=== PATIENT | male | born 1985 | race Asian ===

== ENCOUNTER 2017-01-08 00:01 | Emergency (ER) | payer OTHER ==
[~2017-01-08] VITALS: Ht 165.1 cm; Wt 76.2 kg
[~2017-01-08 00:01] MED LIST: AZIT250T6 PO; BENZ100C PO; CEPH500T PO; CETI10TA16 PO; DEXT30SU PO; PROAIR HFA8.5 GM INH; [UNRECOGNIZED DRUG - CODE] OP
[2017-01-08 00:08] VITALS: BP 140/84
[2017-01-08] MEDS ORDERED: IBUP-1007 PO (00:36)
--- NOTE | 2017-01-08 00:36 | PHYS DOC ---
Past Medical History Past Medical History: Asthma Past Surgical History: No Surgical History Additional Information: nonsmoker Alcohol Use: None Drug Use: None Adult General Chief Complaint Chief Complaint: LOWER EXT PAIN HPI HPI Patient is a 31 year old male who presents with atraumatic right knee pain for 2 days. He has been ambulatory. He denies history of knee trauma. He has not taken anything for pain. His PCP is Dr. Patino. Review of Systems Review of Systems Constitutional: Denies fever or chills. [] Musculoskeletal: Denies back pain. Reports right knee pain. Integument: Denies rash or skin lesions. [] Neurologic: Denies focal weakness or sensory changes. [] Allergies Allergies Allergies Coded Allergies Type Severity Reaction Last Updated Verified Sulfa (Sulfonamide Antibiotics) Allergy Intermediate 10/19/16 Yes pantoprazole Allergy Intermediate rash 10/19/16 Yes Physical Exam Physical Exam Constitutional: Well developed, well nourished, no acute distress, non-toxic appearance. [] HENT: Normocephalic, atraumatic, oropharynx moist. [] Eyes: PERRLA, EOMI, conjunctiva normal, no discharge. [] Skin: Warm, dry, no erythema, no rash. There is no external sign of trauma. There is no erythema or warmth to suggest infection or inflammation. Extremities: Right patella tenderness, ROM intact, no edema. 2+ DP pulses bilaterally. There is no tenderness of the right hip, thigh, calf, ankle, or foot. Neurologic: Alert and oriented X 3, normal motor function, normal sensory function, no focal deficits noted. [] Psychologic: Affect normal, judgement normal, mood normal. [] Current Patient Data Vital Signs Vital Signs Date Time Temp Pulse Resp B/P Pulse Ox O2 Delivery O2 Flow Rate FiO2 01/08/17 00:08 98.1 82 16 97 Room Air 98.1 EKG EKG [] Radiology/Procedures Radiology/Procedures [] Course & Med Decision Making Course & Med Decision Making Pertinent Labs and Imaging studies reviewed. (See chart for details) The patient is provided with an Aj wrap prior to discharge. His is discharged home with prescription for ibuprofen 600mg. He is given contact information for orthopedics for follow up. Return precautions were discussed. He verbalizes understanding and agrees with plan. Luna Disclaimer Dragon Disclaimer This electronic medical record was generated, in whole or in part, using a voice recognition dictation system. Departure Departure Impression: Primary Impression: Knee pain Disposition: HOME, SELF-CARE Condition: STABLE Referrals: BRYAN PATINO MD (PCP) GEORGI LOREDO II, MD Patient Instructions: Knee Pain, [id number], Knee Wraps (Elastic Bandage) and RICE Additional Instructions: Please wear the Aj wrap to help decrease your pain. Please follow up with the orthopedic doctor listed below if your pain continues. Return to the emergency department if you have any new or concerning symptoms. Scripts Ibuprofen 600 Mg [id number] Mg PO PRN Q6HRS PRN INFLAMMATION #20 TAB Prov:ABRAM MARTINEZ 01/08/17 Problem Qualifiers Primary Impression: Knee pain Laterality: right Chronicity: acute Qualified Code: M25.561 - Pain in right knee ABRAM MARTINEZ Jan 08, 2017 00:36
== END 2017-01-08 00:42 | disposition home or self-care (01) ==
LOC: ER 00:01
DX: M25.561 Pain in right knee (principal); J45.909 Unspecified asthma, uncomplicated; Z88.2 Allergy status to sulfonamides; Z88.8 Allergy status to other drugs, medicaments and biological substances
CPT/HCPCS: 29515; 99283-25

== ENCOUNTER 2017-01-31 02:39 | Emergency (ER) | payer OTHER ==
[~2017-01-31] VITALS: Ht 167.6 cm; Wt 78.0 kg
[2017-01-31 02:39] VITALS: BP 132/78
[~2017-01-31 02:39] MED LIST changes: +IBUP-1007 PO
[2017-01-31] MEDS ORDERED: BENZONATATE 100 MG CAPSULE. PO ONE (03:45)
[2017-01-31] MEDS ORDERED: NAPROXEN 250 MG TABLET PO ONE (03:45)
[2017-01-31] MEDS ORDERED: BENZ100C PO (03:49)
--- NOTE | 2017-01-31 03:58 | ED.ADGEN ---
Past Medical History Past Medical History: No Pertinent History Past Surgical History: No Surgical History Alcohol Use: None Drug Use: None Adult General Chief Complaint Chief Complaint: SORE THROAT HPI HPI Patient is a 31 year old man, with no significant past no history, who presents to the emergency department with complaint of nasal congestion, rhinorrhea, sore throat that began 2 days ago. Patient states that he took ibuprofen at home yesterday with some improvement. Denies any fevers or chills, any headache , any difficulty swallowing or breathing, although he states he has had pain with swallowing. Last took a dose of medication more than 12 hours prior to arrival in the ED. He is afebrile upon arrival. Denies any sick contacts or exposures, states that he has a mild cough productive of white sputum over the past several days as well. No chest pain, no shortness of breath, no weakness numbness or tingling, no headache, no ear pain. No recent travel or surgery, history of DVT or PE, no swelling of the extremities. No rashes. Review of Systems Review of Systems Constitutional: Denies fever or chills. [] Eyes: Denies change in visual acuity. [] HENT: Nasal congestion and sore throat over the past several days. Respiratory: No shortness of breath, complaining of cough white sputum over the past several days. Cardiovascular: Denies chest pain or edema. [] GI: Denies abdominal pain, nausea, vomiting, bloody stools or diarrhea. [] : Denies dysuria. [] Musculoskeletal: Denies back pain or joint pain. [] Integument: Denies rash. [] Neurologic: Denies headache, focal weakness or sensory changes. [] Endocrine: Denies polyuria or polydipsia. [] Lymphatic: Denies swollen glands. [] Psychiatric: Denies depression or anxiety. [] Current Medications Current Medications Current Medications Medications (Trade) Dose Ordered Sig/Robert Start Time Stop Time Status Last Admin Dose Admin Benzonatate (Tessalon Perle) 100 mg 1X ONCE 01/31/17 03:45 01/31/17 03:46 DC 01/31/17 03:43 100 MG Naproxen (Naprosyn) 250 mg 1X ONCE 01/31/17 03:45 01/31/17 03:46 DC 01/31/17 03:44 250 MG Allergies Allergies Allergies Coded Allergies Type Severity Reaction Last Updated Verified Sulfa (Sulfonamide Antibiotics) Allergy Intermediate 10/19/16 Yes pantoprazole Allergy Intermediate rash 10/19/16 Yes Physical Exam Physical Exam Constitutional: Well developed, well nourished, no acute distress, non-toxic appearance. [] HENT: Normocephalic, atraumatic, bilateral external ears normal, oropharynx moist, oropharynx is mildly injected, no exudates appreciated, no tonsillar swelling, no mucosal involvement, no lesions identified. Eyes: PERRLA, EOMI, conjunctiva normal, no discharge. [] Neck: Normal range of motion, no tenderness, supple, no stridor. [] Cardiovascular:Heart rate regular rhythm, no murmur, S1, S2, no rubs or gallops. [] Lungs & Thorax: Bilateral breath sounds clear to auscultation , no wheezing, rhonchi, rales. No chest tenderness or crepitus. [] Abdomen: Bowel sounds normal, soft, no tenderness, no masses, no pulsatile masses. [] Skin: Warm, dry, no erythema, no rash. [] Back: No tenderness, no CVA tenderness. [] Extremities: No tenderness, no cyanosis, no clubbing, ROM intact, no edema. [] Neurologic: Alert and oriented X 3, normal motor function, normal sensory function, no focal deficits noted. [] Psychologic: Affect normal, judgement normal, mood normal. [] Current Patient Data Vital Signs Vital Signs Date Time Temp Pulse Resp B/P Pulse Ox O2 Delivery O2 Flow Rate FiO2 01/31/17 02:39 98.2 83 18 97 Room Air 98.2 EKG EKG Not indicated. [] Radiology/Procedures Radiology/Procedures Not indicated. [] Course & Med Decision Making Course & Med Decision Making Pertinent Labs and Imaging studies reviewed. (See chart for details) Patient examination does not reveal any evidence of lower airspace disease involvement, or any swelling or airway throat compromise. Patient denies any pain with swallowing, did tolerate naproxen and Tessalon Perle in the ED without issue along with by mouth fluids. No dictation for imaging or additional evaluation, strep swab was negative. I did discuss supportive measures for a viral upper respiratory infection with patient, she voiced understanding and agreement. Discharged home with prescription for Tessalon Perles, medications, precautions, and instructions as stated. Dragon Disclaimer Dragon Disclaimer This electronic medical record was generated, in whole or in part, using a voice recognition dictation system. Departure Impression: Primary Impression: Sore throat (viral) Additional Impression: Cough Disposition: HOME, SELF-CARE Condition: IMPROVED Scripts Benzonatate (Tessalon Perle)100 Mg [id number] Mg PO TID PRN COUGH #12 CAP Prov:ABRAM MCARTHUR DO 01/31/17 Problem Qualifiers ABRAM MCARTHUR DO Jan 31, 2017 03:58
[2017-01-31 08:25] LABS: NEGATIVE OBC STREP NEG; POSITIVE OBC STREP POS
== END 2017-01-31 03:58 | disposition home or self-care (01) ==
LOC: ER 02:39
DX: J02.8 Acute pharyngitis due to other specified organisms (principal); Z88.2 Allergy status to sulfonamides; Z88.8 Allergy status to other drugs, medicaments and biological substances
CPT/HCPCS: 87070; 87880; 99283

== ENCOUNTER 2017-03-07 02:04 | Emergency (ER) | payer OTHER ==
[~2017-03-07] VITALS: Ht 167.6 cm; Wt 78.0 kg
[2017-03-07 02:27] VITALS: BP 142/84
--- NOTE | 2017-03-07 02:30 | PHYS DOC ---
Past Medical History Past Medical History: No Pertinent History Past Surgical History: No Surgical History Alcohol Use: None Drug Use: None Adult General Chief Complaint Chief Complaint: Congestion HPI HPI Patient is a 32 year old male that has been having sinus congestion and clogged nose for the past one week. No fevers or difficulty breathing cough nausea vomiting or other systemic symptoms. Review of Systems Review of Systems Constitutional: Denies fever or chills [] HENT: + nasal congestion. No sore throat [] Respiratory: Denies cough or shortness of breath [] Cardiovascular: No additional information not addressed in HPI [] GI: Denies abdominal pain, nausea, vomiting, bloody stools or diarrhea [] Allergies Allergies Allergies Coded Allergies Type Severity Reaction Last Updated Verified Sulfa (Sulfonamide Antibiotics) Allergy Intermediate 10/19/16 Yes pantoprazole Allergy Intermediate rash 10/19/16 Yes Physical Exam Physical Exam Constitutional: Well developed, well nourished, no acute distress, non-toxic appearance. [] HENT: Normocephalic, atraumatic, bilateral external ears normal, oropharynx moist, no oral exudates. Bilateral nasal turbinates boggy with rhinorrhea noted. No pain to palpation of his sinuses. Eyes: PERRLA, EOMI, conjunctiva normal, no discharge. [] Cardiovascular:Heart rate regular rhythm, no murmur [] Lungs & Thorax: Bilateral breath sounds clear to auscultation [] Current Patient Data Vital Signs Vital Signs Date Time Temp Pulse Resp B/P Pulse Ox O2 Delivery O2 Flow Rate FiO2 03/07/17 02:27 97.7 83 18 98 Room Air 97.7 EKG EKG [] Radiology/Procedures Radiology/Procedures [] Course & Med Decision Making Course & Med Decision Making Patient with sinusitis likely related to allergy so he'll be treated supportively as an outpatient with Nasonex Afrin Benadryl and ibuprofen. Patient will follow with PCP if not improving. Dragon Disclaimer Dragon Disclaimer This electronic medical record was generated, in whole or in part, using a voice recognition dictation system. Departure Departure Impression: Primary Impression: Nasal congestion Disposition: 01 HOME, SELF-CARE Condition: GOOD Referrals: BRYAN PATINO MD (PCP) Patient Instructions: Sinusitis Additional Instructions: ALL OF THESE MEDICATIONS ARE OVER THE COUNTER. TAKE NASONEX AND AFRIN NASAL SPRAYS. TAKE 25MG OF BENADRYL EVERY 6 HOURS AND 400MG OF IBUPROFEN EVERY 6 HOURS FOR THE NEXT WEEK. THANK YOU! DEDE YANG DO March 07, 2017 02:30
== END 2017-03-07 02:41 | disposition home or self-care (01) ==
LOC: ER 02:04
DX: R09.81 Nasal congestion (principal); Z88.2 Allergy status to sulfonamides; Z88.8 Allergy status to other drugs, medicaments and biological substances
CPT/HCPCS: 99281

== ENCOUNTER 2017-03-12 23:40 | Emergency (ER) | payer OTHER ==
[2017-03-12 23:52] VITALS: BP 141/93
--- NOTE | 2017-03-13 00:42 | PHYS DOC ---
Past Medical History Past Medical History: Asthma Past Surgical History: No Surgical History Alcohol Use: None Drug Use: None Adult General Chief Complaint Chief Complaint: Congestion HPI HPI Patient is a 32 year old male presents emergency department stating that he was seen here 3 days ago and was provided with nasal spray. Patient presents back today stating that he has had itchy watery eyes with sneezing. He denies any fever, chills or any nausea vomiting he denies any cough or congestion. Review of Systems Review of Systems Constitutional: Denies fever or chills [] Eyes: Denies change in visual acuity, redness, or eye pain [] HENT: Denies nasal congestion or sore throat [] Respiratory: Denies cough or shortness of breath [] Cardiovascular: No additional information not addressed in HPI [] GI: Denies abdominal pain, nausea, vomiting, bloody stools or diarrhea [] : Denies dysuria or hematuria [] Musculoskeletal: Denies back pain or joint pain [] Integument: Denies rash or skin lesions [] Neurologic: Denies headache, focal weakness or sensory changes [] Endocrine: Denies polyuria or polydipsia [] Allergies Allergies Allergies Coded Allergies Type Severity Reaction Last Updated Verified Sulfa (Sulfonamide Antibiotics) Allergy Intermediate 10/19/16 Yes pantoprazole Allergy Intermediate rash 10/19/16 Yes Physical Exam Physical Exam Constitutional: Well developed, well nourished, no acute distress, non-toxic appearance. [] HENT: Normocephalic, atraumatic, bilateral external ears normal, oropharynx moist, no oral exudates, nose normal. Bilateral tympanic membranes appear to be normal. Throat with no erythematous no drainage and no discharge noted. Eyes: PERRLA, EOMI, conjunctiva appears to be red with no discharge noted Neck: Normal range of motion, no tenderness, supple, no stridor. [] Cardiovascular:Heart rate regular rhythm, no murmur [] Lungs & Thorax: Bilateral breath sounds clear to auscultation [] Skin: Warm, dry, no erythema, no rash. [] Back: No tenderness Extremities: No tenderness, no cyanosis, no clubbing, ROM intact, no edema. [] Neurologic: Alert and oriented X 3, normal motor function, normal sensory function, no focal deficits noted. [] Psychologic: Affect normal, judgement normal, mood normal. [] Current Patient Data Vital Signs Vital Signs Date Time Temp Pulse Resp B/P (MAP) Pulse Ox O2 Delivery O2 Flow Rate FiO2 03/12/17 23:52 98.0 85 20 97 Room Air 98.0 EKG EKG [] Radiology/Procedures Radiology/Procedures [] Course & Med Decision Making Course & Med Decision Making Pertinent Labs and Imaging studies reviewed. (See chart for details) Patient will be provided with information in allergies. Recommended Zyrtec and Visine allergy drops [id number]. Recommended patient to continue with the nasal sprays in which patient was prescribed 3 days ago. Patient will be discharged home in stable condition with recommendations to follow-up with her primary care physician in the next 3-5 days. Patient will also be provided with signs and symptoms to return back to emergency department. [] Dragon Disclaimer Dragon Disclaimer This electronic medical record was generated, in whole or in part, using a voice recognition dictation system. Departure Departure Impression: Primary Impression: Environmental allergies Disposition: HOME, SELF-CARE Condition: STABLE Referrals: BRYAN PATINO MD (PCP) Patient Instructions: Allergic Rhinitis Additional Instructions: Activity as tolerated. Medications as prescribed such as Zyrtec, and Visine eyedrops for allergy relief. Continue with the nasal sprays in which you were provided 3 days ago. Nasonex is nasal spray in which you were recommended to use. Return back to emergency department sent signs and symptoms of become worse. Follow-up with her primary care physician in the next 3-5 days. MATTY HILL APRN March 13, 2017 00:42
== END 2017-03-13 00:50 | disposition home or self-care (01) ==
LOC: ER 03-13 00:14
DX: T78.49XA Other allergy, initial encounter (principal); J45.909 Unspecified asthma, uncomplicated; Z88.2 Allergy status to sulfonamides; Z88.8 Allergy status to other drugs, medicaments and biological substances; X58.XXXA Exposure to other specified factors, initial encounter
CPT/HCPCS: 99281

== ENCOUNTER 2017-03-24 02:04 | Emergency (ER) | payer OTHER ==
[~2017-03-24] VITALS: Ht 167.6 cm; Wt 78.0 kg
[2017-03-24 02:10] VITALS: BP 157/96
[2017-03-24] MEDS ORDERED: PROAIR HFA8.5 GM INH (02:26)
[2017-03-24] MEDS ORDERED: FLUT9.9S NS (02:26)
--- NOTE | 2017-03-24 02:26 | PHYS DOC ---
Past Medical History Past Medical History: Asthma Past Surgical History: No Surgical History Alcohol Use: None Drug Use: None Adult General Chief Complaint Chief Complaint: Congestion HPI HPI Patient is a 32 year old male who presents with complaint of nasal congestion and cough. Patient states his symptoms have been worsening over the past 2 days. Patient has history of seasonal allergies and asthma. Patient states that he has been taking an allergy pill at home with no relief in symptoms. Patient states that his symptoms seem to worsen at nighttime. Patient denies any associated fever or shortness of breath with symptoms. Review of Systems Review of Systems Constitutional: Denies fever or chills [] Eyes: Denies change in visual acuity, redness, or eye pain [] HENT: Nasal congestion, denies sore throat [] Respiratory: Cough, denies shortness of breath [] Cardiovascular: Denies chest pain or edema [] GI: Denies abdominal pain, nausea, vomiting, bloody stools or diarrhea [] : Denies dysuria or hematuria [] Musculoskeletal: Denies back pain or joint pain [] Integument: Denies rash or skin lesions [] Neurologic: Denies headache, focal weakness or sensory changes [] Current Medications Current Medications Current Medications Medications (Trade) Dose Ordered Sig/Robert Start Time Stop Time Status Last Admin Dose Admin Dexamethasone Sodium Phosphate (Decadron) 12 mg 1X ONCE 03/24/17 02:30 03/24/17 02:31 DC 03/24/17 02:41 12 MG Oxymetazoline HCl (Afrin) 2 spray 1X ONCE 03/24/17 02:30 03/24/17 02:31 DC 03/24/17 02:41 2 SPRAY Allergies Allergies Allergies Coded Allergies Type Severity Reaction Last Updated Verified Sulfa (Sulfonamide Antibiotics) Allergy Intermediate 10/19/16 Yes pantoprazole Allergy Intermediate rash 10/19/16 Yes Physical Exam Physical Exam Constitutional: Alert, afebrile, no acute distress. [] HENT: Normocephalic, atraumatic, bilateral external ears normal, oropharynx moist, no oral exudates, boggy nasal mucosa bilaterally, clear rhinorrhea bilaterally Neck: Normal range of motion, no tenderness, supple, no stridor. [] Cardiovascular:Heart rate regular rhythm, no murmur [] Lungs & Thorax: None restricted air movement bilaterally, faint occasional expiratory wheezes in the right upper lobe, no rales [] Abdomen: Bowel sounds normal, soft, no tenderness, no masses, no pulsatile masses. [] Skin: Warm, dry, no erythema, no rash. [] Back: No tenderness, no CVA tenderness. [] Extremities: No tenderness, no cyanosis, no clubbing, ROM intact, no edema. [] Neurologic: Alert and oriented X 3, normal motor function, normal sensory function, no focal deficits noted. [] Current Patient Data Vital Signs Vital Signs Date Time Temp Pulse Resp B/P (MAP) Pulse Ox O2 Delivery O2 Flow Rate FiO2 03/24/17 02:10 97.7 73 18 97 Room Air 97.7 EKG EKG Not performed [] Radiology/Procedures Radiology/Procedures Not performed [] Course & Med Decision Making Course & Med Decision Making Pertinent Labs and Imaging studies reviewed. (See chart for details) Patient's symptoms appear consistent with mild to moderate exacerbation of seasonal allergies. Patient was treated with IM Decadron and Afrin nasal spray to improve air movement through nasal passages. Patient was prescribed Flonase for continued treatment of allergic rhinitis. Patient provided with prescription for albuterol inhaler to use as needed for wheezing and advised to continue on allergy medication. Recommended follow-up in 5 days a primary doctor if symptoms are not improving and return to emergency department for any worsening symptoms. Patient voiced understanding and in agreement with treatment plan. Dragon Disclaimer Dragon Disclaimer This electronic medical record was generated, in whole or in part, using a voice recognition dictation system. Departure Departure Impression: Primary Impression: Allergic rhinitis Additional Impression: Asthma Disposition: 01 HOME, SELF-CARE Condition: IMPROVED Referrals: BRYAN PATINO MD (PCP) Patient Instructions: Allergic Rhinitis, Asthma, Adult Additional Instructions: Follow-up with primary doctor in the next 5 days if symptoms are not improving. Return to emergency department for any worsening symptoms. Scripts Albuterol Sulfate (PROAIR HFA INHALER) 8.5 Gm Hfa.aer.ad 2 PUFF INH Q6HRS Y for SHORTNESS OF BREATH, #1 INHALER 0 Refills Prov: SHARMAINE MANCILLA MD 03/24/17 Fluticasone Propionate (Flonase Allergy Relief) 9.9 Ml [place].susp 2 SPRAYS NS DAILY, #1 BOTTLE Prov: SHARMAINE MANCILLA MD 03/24/17 Problem Qualifiers Primary Impression: Allergic rhinitis Allergic rhinitis trigger: unspecified Allergic rhinitis seasonality: seasonal Qualified Codes: J30.2 - Other seasonal allergic rhinitis Additional Impression: Asthma Asthma severity: mild intermittent Asthma complication type: uncomplicated Qualified Codes: J45.20 - Mild intermittent asthma, uncomplicated SHARMAINE MANCILLA MD March 24, 2017 02:26
[2017-03-24] MEDS ORDERED: OXYMETAZOLINE 0.05% NASAL SPRAY 30ML BOTTLE. NS ONE (02:30)
[2017-03-24] MEDS ORDERED: DEXAMETHASONE SOD PHOS 20 MG/5 ML VIAL. IM ONE (02:30)
== END 2017-03-24 02:47 | disposition home or self-care (01) ==
LOC: ER 02:04
DX: J30.2 Other seasonal allergic rhinitis (principal); J45.20 Mild intermittent asthma, uncomplicated; Z88.2 Allergy status to sulfonamides; Z88.8 Allergy status to other drugs, medicaments and biological substances
CPT/HCPCS: 96372; 99283; J1100

== ENCOUNTER 2018-03-14 22:47 | Emergency (ER) | payer OTHER | END 2018-03-14 23:55 | disposition home or self-care (01) | LOC: ER 23:55 | DX: J30.2 Other seasonal allergic rhinitis (principal); J45.909 Unspecified asthma, uncomplicated; Z88.2 Allergy status to sulfonamides; Z88.8 Allergy status to other drugs, medicaments and biological substances | CPT/HCPCS: 99283 ==

== ENCOUNTER 2018-03-26 09:27 | Emergency (ER) | payer OTHER ==
[2018-03-26] MEDS: predniSONE 10 MG TABLET PO (10:11)
[2018-03-26] MEDS: IPRATRPIUM/ALBUTEROL 0.5/2.5MG 3 ML NEBU. NEB (10:29)
== END 2018-03-26 11:07 | disposition home or self-care (01) ==
LOC: ER 09:27
DX: J45.901 Unspecified asthma with (acute) exacerbation (principal); Z88.2 Allergy status to sulfonamides; Z88.8 Allergy status to other drugs, medicaments and biological substances
CPT/HCPCS: 94640; 99283; J7512; J7620

== ENCOUNTER 2018-05-27 10:21 | Emergency (ER) | payer OTHER ==
[2018-05-27] MEDS: IBUPROFEN 800 MG TABLET. PO (11:00)
== END 2018-05-27 11:43 | disposition home or self-care (01) ==
LOC: ER 11:43
DX: S29.9XXA Unspecified injury of thorax, initial encounter (principal); J45.909 Unspecified asthma, uncomplicated; Z88.2 Allergy status to sulfonamides; Z88.8 Allergy status to other drugs, medicaments and biological substances; W22.8XXA Striking against or struck by other objects, initial encounter; Y93.89 Activity, other specified; Y99.8 Other external cause status; Y92.89 Other specified places as the place of occurrence of the external cause
CPT/HCPCS: 71101; 99284

== ENCOUNTER 2019-03-27 16:38 | Emergency (ER) | payer OTHER ==
[~2019-03-27] VITALS: Ht 167.6 cm; Wt 78.0 kg
[~2019-03-27 16:38] MED LIST changes: +ALBU2.5V8 INH; +CETI10TA22 PO; +FLUT9.9S NS; +IBUP-1060 PO; +METH4TAB2 PO; +PRED20TA PO; -PROAIR HFA8.5 GM INH; +VENTOLIN HFA18 GM INH
[2019-03-27 16:54] VITALS: BP 151/83
--- NOTE | 2019-03-27 17:29 | RAD ---
Two-view chest dated 03/27/2019. Comparison made to 05/27/2018. CLINICAL INDICATION: Cough. FINDINGS: PA and lateral views obtained. Heart and mediastinal contours are stable. Lungs are clear without focal consolidation. Vascular interstitium within normal limits. No pleural effusion or pneumothorax. IMPRESSION: No acute radiographic abnormality. Electronically signed by: Santos Bush MD (03/27/2019 5:27 PM) [facility]
--- NOTE | 2019-03-27 17:43 | PHYS DOC ---
Past Medical History Past Medical History: No Pertinent History, Asthma Past Surgical History: No Surgical History Alcohol Use: None Drug Use: None Adult General Chief Complaint Chief Complaint: COUGH HPI HPI Patient is a 34 year old male with history of asthma who presents today complaining of a productive cough for 2 months. Patient is also complaining of nasal congestion. Patient states his symptoms are worse when he is at work, he works in a freezer. Denies any fever. Review of Systems Review of Systems Constitutional: Denies fever or chills [] Eyes: Denies change in visual acuity, redness, or eye pain [] HENT: Reports nasal congestion, denies sore throat [] Respiratory: Reports cough, denies shortness of breath [] Cardiovascular: No additional information not addressed in HPI [] GI: Denies abdominal pain, nausea, vomiting, bloody stools or diarrhea [] : Denies dysuria or hematuria [] Musculoskeletal: Denies back pain or joint pain [] Integument: Denies rash or skin lesions [] Neurologic: Denies headache, focal weakness or sensory changes [] All other systems were reviewed and found to be within normal limits, except as documented in this note. Current Medications Current Medications Current Medications Medications (Trade) Dose Ordered Sig/Robert Start Time Stop Time Status Last Admin Dose Admin Albuterol/ Ipratropium (Duoneb) 3 ml 1X ONCE 03/27/19 17:45 03/27/19 17:46 DC 03/27/19 17:42 3 ML Benzonatate (Tessalon Perle) 100 mg 1X ONCE 03/27/19 17:45 03/27/19 17:46 DC 03/27/19 17:26 100 MG Prednisone (Prednisone) 50 mg 1X ONCE 03/27/19 17:45 03/27/19 17:46 DC 03/27/19 17:26 50 MG Allergies Allergies Allergies Coded Allergies Type Severity Reaction Last Updated Verified Sulfa (Sulfonamide Antibiotics) Allergy Intermediate 10/19/16 Yes pantoprazole Allergy Intermediate rash 10/19/16 Yes Physical Exam Physical Exam Constitutional: Well developed, well nourished, no acute distress, non-toxic appearance. [] HENT: Normocephalic, atraumatic, bilateral external ears normal, oropharynx moist, no oral exudates, nose normal. [] Eyes: PERRLA, EOMI, conjunctiva normal, no discharge. [] Neck: Normal range of motion, no tenderness, supple, no stridor. [] Cardiovascular:Heart rate regular rhythm, no murmur [] Lungs & Thorax: Bilateral breath sounds clear to auscultation [] Abdomen: Bowel sounds normal, soft, no tenderness, no masses, no pulsatile masses. [] Skin: Warm, dry, no erythema, no rash. [] Back: No tenderness, no CVA tenderness. [] Extremities: No tenderness, no cyanosis, no clubbing, ROM intact, no edema. [] Neurologic: Alert and oriented X 3, normal motor function, normal sensory function, no focal deficits noted. [] Psychologic: Affect normal, judgement normal, mood normal. [] Current Patient Data Vital Signs Vital Signs Date Time Temp Pulse Resp B/P (MAP) Pulse Ox O2 Delivery O2 Flow Rate FiO2 03/27/19 17:44 100 Room Air 03/27/19 16:54 97.6 96 18 151/83 (105) 97.6 EKG EKG [] Radiology/Procedures Radiology/Procedures []PROCEDURE: CHEST PA & LATERAL Two-view chest dated 03/27/2019. Comparison made to 05/27/2018. CLINICAL INDICATION: Cough. FINDINGS: PA and lateral views obtained. Heart and mediastinal contours are stable. Lungs are clear without focal consolidation. Vascular interstitium within normal limits. No pleural effusion or pneumothorax. IMPRESSION: No acute radiographic abnormality. Electronically signed by: Santos Bush MD (03/27/2019 5:27 PM) [facility] DICTATED and SIGNED BY: SANTOS BUSH MD DATE: 03/27/19 1722 Course & Med Decision Making Course & Med Decision Making Pertinent Labs and Imaging studies reviewed. (See chart for details) This is a 34-year-old male patient presenting to the ED today complaining of a productive cough for 2 months. 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 Chest x-ray interpreted by radiologist as negative for any acute findings. O2 sats 96% on room air. Patient was given a DuoNeb treatment. Given prednisone and Tessalon Perles.Patient was discharged with albuterol inhaler, Prednisone, Tessalon Perles. Follow-up with PCP in 1-2 weeks. Dragon Disclaimer Dragon Disclaimer This electronic medical record was generated, in whole or in part, using a voice recognition dictation system. Departure Departure Impression: Primary Impression: Asthma exacerbation Additional Impression: URI (upper respiratory infection) Disposition: 01 HOME, SELF-CARE Condition: STABLE Referrals: BRYAN PATINO MD (PCP) follow up in 1 week Patient Instructions: Asthma, Adult, Upper Respiratory Infection, Adult, [id number] Additional Instructions: You were evaluated in the emergency with symptoms consistent of upper respiratory infection and asthma. We'll put to medications, take them as prescribed. Follow-up with your doctor in 1-2 weeks. Scripts Benzonatate (TESSALON PERLE) 100 Mg Capsule 1 CAP PO TID, #30 CAP Prov: ANDREWS MCLEOD APRN 03/27/19 Prednisone (PREDNISONE) 50 Mg Tablet 1 TAB PO DAILY, #5 TAB Prov: ANDREWS MCLEOD APRN 03/27/19 Albuterol Sulfate (Proair Hfa) 8.5 Gm Hfa.aer.ad 1 PUFF INH PRN Q6HRS PRN for SHORTNESS OF BREATH, #1 INHALER Prov: ANDREWS MCLEOD APRN 03/27/19 Problem Qualifiers Primary Impression: Asthma exacerbation Asthma severity: mild Asthma persistence: intermittent Qualified Codes: J45.21 - Mild intermittent asthma with (acute) exacerbation Additional Impression: URI (upper respiratory infection) URI type: unspecified URI Qualified Codes: J06.9 - Acute upper respiratory infection, unspecified ANDREWS MCLEOD APRN March 27, 2019 17:43
[2019-03-27] MEDS ORDERED: IPRATRPIUM/ALBUTEROL 0.5/2.5MG 3 ML NEBU. NEB ONE (17:45)
[2019-03-27] MEDS ORDERED: BENZONATATE 100 MG CAPSULE. PO ONE (17:45)
[2019-03-27] MEDS ORDERED: predniSONE 10 MG TABLET PO ONE (17:45)
[2019-03-27] MEDS ORDERED: ALBU2.5V8 INH (18:05)
[2019-03-27] MEDS ORDERED: BENZ100C PO (18:05)
[2019-03-27] MEDS ORDERED: PRED50TA PO (18:05)
== END 2019-03-27 18:32 | disposition home or self-care (01) ==
LOC: ER 16:38
DX: J45.21 Mild intermittent asthma with (acute) exacerbation (principal); J06.9 Acute upper respiratory infection, unspecified; Z88.2 Allergy status to sulfonamides; Z88.8 Allergy status to other drugs, medicaments and biological substances
CPT/HCPCS: 71046; 94640; 99284; J7512; J7620

== ENCOUNTER 2019-08-14 09:13 | Emergency (ER) | payer OTHER ==
[~2019-08-14] VITALS: Ht 167.6 cm; Wt 78.0 kg
[~2019-08-14 09:13] MED LIST changes: +PRED50TA PO
[2019-08-14 09:15] VITALS: BP 148/92
--- NOTE | 2019-08-14 09:38 | PHYS DOC ---
Past Medical History Past Medical History: No Pertinent History, Asthma Past Surgical History: No Surgical History Alcohol Use: None Drug Use: None Adult General Chief Complaint Chief Complaint: SORE THROAT HPI HPI Patient is a 34 year old male that presents to the emergency department for sore throat, cough, and runny noses been ongoing since last night. The patient rates his pain as 8 out of 10 in severity states he is not taking medicine for this condition at home. No other complaints Review of Systems Review of Systems Constitutional: Denies fever or chills [] Eyes: Denies change in visual acuity, redness, or eye pain [] HENT: Report nasal congestion and sore throat [] Respiratory: Reports cough Cardiovascular: No additional information not addressed in HPI [] GI: Denies abdominal pain, nausea, vomiting, bloody stools or diarrhea [] : Denies dysuria or hematuria [] Musculoskeletal: Denies back pain or joint pain [] Integument: Denies rash or skin lesions [] Neurologic: Denies headache, focal weakness or sensory changes [] Endocrine: Denies polyuria or polydipsia [] Complete systems were reviewed and found to be within normal limits, except as documented in this note. Allergies Allergies Allergies Coded Allergies Type Severity Reaction Last Updated Verified Sulfa (Sulfonamide Antibiotics) Allergy Intermediate 10/19/16 Yes pantoprazole Allergy Intermediate rash 10/19/16 Yes Physical Exam Physical Exam Constitutional: Well developed, well nourished, no acute distress, non-toxic appearance. [] HENT: Normocephalic, atraumatic, bilateral external ears normal, tonsils are 2+/4, oropharynx moist, no oral exudates, turbinates inflamed Eyes: PERRLA, EOMI, conjunctiva normal, no discharge. [] Neck: Normal range of motion, no tenderness, supple, no stridor. [] Cardiovascular:Heart rate regular rhythm, no murmur [] Lungs & Thorax: Bilateral breath sounds clear to auscultation [] Abdomen: Bowel sounds normal, soft, no tenderness, no masses, no pulsatile tenzin s. [] Skin: Warm, dry, no erythema, no rash. [] Back: No tenderness, no CVA tenderness. [] Extremities: No tenderness, no cyanosis, no clubbing, ROM intact, no edema. [] Neurologic: Alert and oriented X 3, normal motor function, normal sensory function, no focal deficits noted. [] Psychologic: Affect normal, judgement normal, mood normal. [] Current Patient Data Vital Signs Vital Signs Date Time Temp Pulse Resp B/P (MAP) Pulse Ox O2 Delivery O2 Flow Rate FiO2 08/14/19 09:15 97.7 73 16 148/92 (110) 98 Room Air 97.7 EKG EKG [] Radiology/Procedures Radiology/Procedures [] Course & Med Decision Making Course & Med Decision Making Pertinent Labs and Imaging studies reviewed. (See chart for details) Appears to be having a sore throat secondary to allergic rhinitis. Directed patient to take Zyrtec daily, Mucinex, and Afrin (No more than 3 days) for congestion. Dragon Disclaimer Dragon Disclaimer This electronic medical record was generated, in whole or in part, using a voice recognition dictation system. Departure Departure Impression: Primary Impression: Allergic rhinitis Disposition: HOME, SELF-CARE Condition: STABLE Referrals: BRYAN PATINO MD (PCP) Patient Instructions: Allergic Rhinitis Additional Instructions: Thank you for visiting [facility]. We appreciate you trusting us with your care. If any additional problems come up don't hesitate to return to visit us. Please follow up with your primary care provider so they can plan additional care if needed and know about the problem that you had. If symptoms worsen come back to the Emergency Department. Any concerning symptoms that start such as chest pain, shortness of air, weakness or numbness on one side of the body, running high fevers or any other concerning symptoms return to the ER. Please take Afrin over the counter per label instruction (No more than 3 days) for nasal congestion. Please take Zyrtec daily to help dry up drainage. Please follow label instructions. Please take Mucinex to help thin mucus as needed. Please follow label instructions. Problem Qualifiers Primary Impression: Allergic rhinitis Allergic rhinitis trigger: unspecified Allergic rhinitis seasonality: seasonal Qualified Codes: J30.2 - Other seasonal allergic rhinitis JAME PIERRE SACK CLEANER Aug 14, 2019 09:38
== END 2019-08-14 09:43 | disposition home or self-care (01) ==
LOC: ER 09:13
DX: J45.909 Unspecified asthma, uncomplicated (principal); Z88.2 Allergy status to sulfonamides; Z88.8 Allergy status to other drugs, medicaments and biological substances
CPT/HCPCS: 99281

== ENCOUNTER 2020-01-21 05:02 | Emergency (ER) | payer OTHER ==
[~2020-01-21 05:02] MED LIST changes: -CETI10TA22 PO; +CETI10TA24 PO
== END 2020-01-21 05:20 | disposition left against medical advice (07) ==
LOC: ER 05:02
DX: R09.81 Nasal congestion (principal); Z53.21 Procedure and treatment not carried out due to patient leaving prior to being seen by health care provider

== ENCOUNTER 2020-03-22 21:47 | Emergency (ER) | payer OTHER ==
[~2020-03-22] VITALS: Ht 167.6 cm; Wt 78.0 kg
[2020-03-22 22:49] VITALS: BP 156/107
[2020-03-22] MEDS ORDERED: PRED20TA PO (23:37)
[2020-03-22] MEDS ORDERED: ALBU2.5V8 IH (23:37)
[2020-03-22] MEDS ORDERED: ERYT1OIN6 OP (23:37)
--- NOTE | 2020-03-22 23:38 | PHYS DOC ---
Past Medical History Past Medical History: No Pertinent History, Asthma Past Surgical History: No Surgical History Smoking Status: Former Smoker Alcohol Use: None Drug Use: None General Adult EDM: Chief Complaint: ALLERGIES HPI: HPI: Patient is a 35 year old [f__sex] who presents with [] Review of Systems: Review of Systems: Constitutional: Denies fever or chills. [] Eyes: Denies change in visual acuity. [] HENT: Denies nasal congestion or sore throat. [] Respiratory: Denies cough or shortness of breath. [] Cardiovascular: Denies chest pain or edema. [] GI: Denies abdominal pain, nausea, vomiting, bloody stools or diarrhea. [] : Denies dysuria. [] Musculoskeletal: Denies back pain or joint pain. [] Integument: Denies rash. [] Neurologic: Denies headache, focal weakness or sensory changes. [] Endocrine: Denies polyuria or polydipsia. [] Lymphatic: Denies swollen glands. [] Psychiatric: Denies depression or anxiety. [] Heart Score: Risk Factors: Risk Factors: DM, Current or recent (<one month) smoker, HTN, HLP, family history of CAD, obesity. Risk Scores: Score 0 - 3: 2.5% MACE over next 6 weeks - Discharge Home Score 4 - 6: 20.3% MACE over next 6 weeks - Admit for Clinical Observation Score 7 - 10: 72.7% MACE over next 6 weeks - Early Invasive Strategies Allergies: Allergies: Allergies Coded Allergies Type Severity Reaction Last Updated Verified Sulfa (Sulfonamide Antibiotics) Allergy Intermediate 10/19/16 Yes pantoprazole Allergy Intermediate rash 10/19/16 Yes Physical Exam: PE: Constitutional: Well developed, well nourished, no acute distress, non-toxic appearance. [] HENT: Normocephalic, atraumatic, bilateral external ears normal, oropharynx moist, no oral exudates, nose normal. [] Eyes: PERRLA, EOMI, conjunctiva normal, no discharge. [] Neck: Normal range of motion, no tenderness, supple, no stridor. [] Cardiovascular:Heart rate regular rhythm, no murmur [] Lungs & Thorax: Bilateral breath sounds clear to auscultation [] Abdomen: Bowel sounds normal, soft, no tenderness, no masses, no pulsatile masses. [] Skin: Warm, dry, no erythema, no rash. [] Back: No tenderness, no CVA tenderness. [] Extremities: No tenderness, no cyanosis, no clubbing, ROM intact, no edema. [] Neurologic: Alert and oriented X 3, normal motor function, normal sensory function, no focal deficits noted. [] Psychologic: Affect normal, judgement normal, mood normal. [] Current Patient Data: Vital Signs: Vital Signs Date Time Temp Pulse Resp B/P (MAP) Pulse Ox O2 Delivery O2 Flow Rate FiO2 03/22/20 22:49 97.5 99 16 156/107 (123) 96 Room Air 97.5 EKG: EKG: [] Radiology/Procedures: Radiology/Procedures: [] Course & Med Decision Making: Course & Med Decision Making Pertinent Labs and Imaging studies reviewed. (See chart for details) [] Dragon Disclaimer: Dragon Disclaimer: This electronic medical record was generated, in whole or in part, using a voice recognition dictation system. Departure Departure Impression: Primary Impression: Allergic conjunctivitis Qualified Codes: H10.13 - Acute atopic conjunctivitis, bilateral Additional Impressions: Medication refill Nasal congestion Disposition: HOME, SELF-CARE Condition: STABLE Referrals: BRYAN PATINO MD (PCP) Patient Instructions: Allergic Conjunctivitis, [id number], Allergic Rhinitis, Medication Refill, Emergency Department Additional Instructions: Use humidifier. May also take over the counter Claritin as directed on the box. Scripts Erythromycin Base (Erythromycin) 1 Gm Oint...g. 0.25 INCH OP QID for 5 Days, #1 TUBE Prov: JAME DOWNING DO 03/22/20 Albuterol Sulfate (Proair Hfa) 8.5 Gm Hfa.aer.ad 2 PUFF IH PRN Q4-6HRS PRN for wheezing, #1 INHALER 0 Refills Prov: JAME DOWNING DO 03/22/20 Prednisone (PREDNISONE) 20 Mg Tablet 2 TAB PO DAILY, #8 TAB Start this medication tomorrow, Monday03/23/20 Prov: JAME DOWNING DO 03/22/20 JAME DOWNING DO March 22, 2020 23:38
[2020-03-22] MEDS ORDERED: DEXAMETHASONE 4 MG TABLET PO ONE (23:45)
[2020-03-22] MEDS ORDERED: ERYTHROMYCIN 0.5% OPHTH OINTMENT 1GM TUBE. OU ONE (23:45)
== END 2020-03-22 23:50 | disposition home or self-care (01) ==
LOC: ER 21:47
DX: H10.13 Acute atopic conjunctivitis, bilateral (principal); R09.81 Nasal congestion; Z76.0 Encounter for issue of repeat prescription; J45.909 Unspecified asthma, uncomplicated; Z87.891 Personal history of nicotine dependence; Z88.2 Allergy status to sulfonamides; Z88.8 Allergy status to other drugs, medicaments and biological substances
CPT/HCPCS: 99283; J8540

== ENCOUNTER 2021-03-08 17:56 | Emergency (ER) | payer OTHER ==
[~2021-03-08] VITALS: Ht 177.8 cm; Wt 81.8 kg
[~2021-03-08 17:56] MED LIST changes: +ALBU2.5V8 IH; -CETI10TA24 PO; +CETI10TA74 PO; +ERYT1OIN6 OP
[2021-03-08 19:15] VITALS: BP 139/96
[2021-03-08] MEDS ORDERED: GENT5DRO3 OD (19:28)
[2021-03-08] MEDS ORDERED: NAPH15DR3 OD (19:28)
--- NOTE | 2021-03-08 19:28 | PHYS DOC ---
Past Medical History Past Medical History: Asthma Past Surgical History: No Surgical History Smoking Status: Former Smoker Alcohol Use: None Drug Use: None General Adult EDM: Chief Complaint: ALLERGIES HPI: HPI: Patient is a 36 year old male presented to the ER for evaluation of right eye itching started about 2 hours ago. It was itching and he was scratched it,caused redness. He denied any eye pain. He denied any blurry vision. Patient is also complaining of nonproductive cough and shortness of air for a few day. He has history of asthma. He denied any fever. Review of Systems: Review of Systems: Constitutional: Denies fever or chills. [] Eyes: positive for eye itching and redness. HENT: Denies nasal congestion or sore throat. [] Respiratory: positive for cough and shortness of air. Cardiovascular: Denies chest pain or edema. [] GI: Denies abdominal pain, nausea, vomiting, bloody stools or diarrhea. [] : Denies dysuria. [] Musculoskeletal: Denies back pain or joint pain. [] Integument: Denies rash. [] Neurologic: Denies headache, focal weakness or sensory changes. [] Endocrine: Denies polyuria or polydipsia. [] Lymphatic: Denies swollen glands. [] Psychiatric: Denies depression or anxiety. [] Heart Score: C/O Chest Pain: N/A Risk Factors: Risk Factors: DM, Current or recent (<one month) smoker, HTN, HLP, family history of CAD, obesity. Risk Scores: Score 0 - 3: 2.5% MACE over next 6 weeks - Discharge Home Score 4 - 6: 20.3% MACE over next 6 weeks - Admit for Clinical Observation Score 7 - 10: 72.7% MACE over next 6 weeks - Early Invasive Strategies Allergies: Allergies: Allergies Coded Allergies Type Severity Reaction Last Updated Verified Sulfa (Sulfonamide Antibiotics) Allergy Intermediate 10/19/16 Yes pantoprazole Allergy Intermediate rash 10/19/16 Yes Physical Exam: PE: Constitutional: Well developed, well nourished, no acute distress, non-toxic appearance. [] HENT: Normocephalic, atraumatic, bilateral external ears normal, oropharynx moist, no oral exudates, nose normal. [] Eyes: PERRLA, EOMI, right conjunctiva is injected, no cornea abrasion, no hyphema. Neck: Normal range of motion, no tenderness, supple, no stridor. [] Cardiovascular:Heart rate regular rhythm, no murmur [] Lungs & Thorax: Bilateral breath sounds with mild expiratory wheezing to auscultation, no respiratory distress. Abdomen: Bowel sounds normal, soft, no tenderness, no masses, no pulsatile masses. [] Skin: Warm, dry, no erythema, no rash. [] Back: No tenderness, no CVA tenderness. [] Extremities: No tenderness, no cyanosis, no clubbing, ROM intact, no edema. [] Neurologic: Alert and oriented X 3, normal motor function, normal sensory function, no focal deficits noted. [] Psychologic: Affect normal, judgement normal, mood normal. [] EKG: EKG: [] Radiology/Procedures: Radiology/Procedures: chest xray: no acute dissease, read by this physician. Course & Med Decision Making: Course & Med Decision Making Pertinent Labs and Imaging studies reviewed. (See chart for details) [] Dragon Disclaimer: Dragon Disclaimer: This electronic medical record was generated, in whole or in part, using a voice recognition dictation system. Departure Departure Impression: Primary Impression: Acute conjunctivitis, right eye Additional Impression: Bronchitis Disposition: 01 HOME / SELF CARE / HOMELESS Condition: STABLE Referrals: BRYAN PATINO MD (PCP) Follow up with your doctor as needed this week. Patient Instructions: Acute Bronchitis, Allergic Conjunctivitis Scripts Prednisone (PREDNISONE) 20 Mg Tablet 1 TAB PO DAILY for 7 Days, #7 TAB Prov: ALEENA HINKLE DO 03/08/21 Azithromycin (ZITHROMAX) 250 Mg Tablet 1 PKG PO UD, #6 TAB Prov: ALEENA HINKLE DO 03/08/21 Albuterol Sulfate (PROAIR HFA INHALER) 8.5 Gm Hfa.aer.ad 1 PUFF INH PRN Q6HRS PRN for SHORTNESS OF BREATH, #1 INHALER 0 Refills Prov: ALEENA HINKLE DO 03/08/21 Gentamicin Sulfate (GENTAMICIN SULFATE 0.3% OPHTH SOLN) 5 Ml Drops 2 DROP OD QID for 5 Days, #5 ML 0 Refills Prov: ALEENA HINKLE DO 03/08/21 Naphazoline Hcl/Pheniramine (OPCON-A EYE DROPS) 15 Ml Drops 2 DROP OD QID for 7 Days, #15 ML 0 Refills Prov: ALEENA HINKLE DO 03/08/21 ALEENA HINKLE DO March 08, 2021 19:28
[2021-03-08] MEDS ORDERED: ALBU2.5V8 INH (19:53)
[2021-03-08] MEDS ORDERED: AZIT250T PO (19:59)
[2021-03-08] MEDS ORDERED: PRED20TA PO (19:59)
--- NOTE | 2021-03-08 20:28 | RAD ---
EXAMINATION: XR CHEST 1V CLINICAL HISTORY: Cough, history of asthma EXAM DATE/TIME: 03/08/2021 7:57 PM COMPARISON: 03/27/2019 FINDINGS: Lines, Tubes, and Devices: None. Cardiomediastinal Silhouette: Within normal limits. Lungs and Pleura: No evidence of focal airspace consolidation, pleural effusion, or pneumothorax. Bones and Soft Tissues: No acute osseous abnormality. IMPRESSION: No evidence of acute cardiopulmonary abnormality or significant interval change. Electronically signed by: Noé Stallworth DO (03/08/2021 8:26 PM) [facility]
== END 2021-03-08 20:15 | disposition home or self-care (01) ==
LOC: ER 17:56
DX: H10.31 Unspecified acute conjunctivitis, right eye (principal); J45.909 Unspecified asthma, uncomplicated; Z87.891 Personal history of nicotine dependence; Z88.2 Allergy status to sulfonamides; Z88.8 Allergy status to other drugs, medicaments and biological substances
CPT/HCPCS: 71045; 99283

== ENCOUNTER 2021-09-17 04:07 | Emergency (ER) | payer OTHER ==
[~2021-09-17] VITALS: Ht 177.8 cm; Wt 81.8 kg
[~2021-09-17 04:07] MED LIST changes: +AZIT250T PO; +GENT5DRO3 OD; +NAPH15DR3 OD
[2021-09-17 05:28] LABS: BILIRUBIN,URINE NEGATIVE (NEG); CLARITY,URINE CLEAR; COLOR,URINE YELLOW; NITRITE,URINE NEGATIVE (NEG); PH,URINE 5.5 (<5.0-8.0); PROTEIN,URINE NEGATIVE (NEG-TRACE); UROBILINOGEN,URINE 0.2 mg/dL (0.2 mg/dL)
[2021-09-17 05:45] LABS: BACTERIA,URINE 0 /HPF (0-FEW); RBC,URINE 0 /HPF (0-2); WBC,URINE 0 /HPF (0-4)
[2021-09-17 05:50] LABS: BASO # 0.1 x10^3/uL (0.0-0.2); BASO % 1 % (0-3); EOS # 0.6 x10^3/uL (0.0-0.7); EOS % 7 % (0-3); HEMATOCRIT 39.8 % (39.0-53.0); HEMOGLOBIN 13.6 g/dL (13.0-17.5); LYMPH # 2.9 x10^3/uL (1.0-4.8); LYMPH % 36 % (24-48); MEAN CORPUSCULAR HEMOGLOBIN 30 pg (25-35); MEAN CORPUSCULAR HGB CONC 34 g/dL (31-37); MEAN CORPUSCULAR VOLUME 88 fL (79-100); MONO # 0.5 x10^3/uL (0.0-1.1); MONO % 6 % (0-9); NEUT # 4.2 x10^3/uL (1.8-7.7); NEUT % 51 % (31-73); PLATELET COUNT 217 x10^3/uL (140-400); RED BLOOD COUNT 4.51 x10^6/uL (4.30-5.70); RED CELL DISTRIBUTION WIDTH 14.4 % (11.5-14.5); WHITE BLOOD COUNT 8.2 x10^3/uL (4.0-11.0)
[2021-09-17 05:59] LABS: CALCIUM 8.9 mg/dL (8.5-10.1); CREATININE 1.1 mg/dL (0.7-1.3); GFR 75.3; POTASSIUM 3.5 mmol/L (3.5-5.1)
[2021-09-17 06:05] LABS: ALBUMIN 4.2 g/dL (3.4-5.0); ALBUMIN/GLOBULIN RATIO 1.2 (1.0-1.7); TOTAL BILIRUBIN 0.3 mg/dL (0.2-1.0); TOTAL PROTEIN 7.6 g/dL (6.4-8.2)
--- NOTE | 2021-09-17 06:06 | PHYS DOC ---
Past Medical History Past Medical History: Asthma Past Surgical History: No Surgical History Smoking Status: Former Smoker Alcohol Use: None Drug Use: None General Adult EDM: Chief Complaint: FLANK PAIN HPI: HPI: Patient is a 36 year old male with history of HTN who presents with right-sided flank pain for the past 3 days. Does not radiate. Slightly worse with deep breaths. No nausea/vomiting. Denies fever/chills. No dysuria, urgency, frequency, or hematuria. No history of kidney stones. Denies any radiation of the pain. It is constant, but does get worse in waves. He believes his only medi cation is amlodipine. Review of Systems: Review of Systems: Constitutional: Denies fever or chills. [] Eyes: Denies change in visual acuity. [] HENT: Denies nasal congestion or sore throat. [] Respiratory: Denies cough or shortness of breath. [] Cardiovascular: Denies chest pain or edema. [] GI: Denies abdominal pain, nausea, vomiting, bloody stools or diarrhea. [] : Denies dysuria. Reports right flank pain. Denies urgency, frequency, hematuria [] Musculoskeletal: Denies back pain or joint pain. [] Integument: Denies rash. [] Neurologic: Denies headache, focal weakness or sensory changes. [] Endocrine: Denies polyuria or polydipsia. [] Lymphatic: Denies swollen glands. [] Psychiatric: Denies depression or anxiety. [] Heart Score: C/O Chest Pain: No Risk Factors: Risk Factors: DM, Current or recent (<one month) smoker, HTN, HLP, family history of CAD, obesity. Risk Scores: Score 0 - 3: 2.5% MACE over next 6 weeks - Discharge Home Score 4 - 6: 20.3% MACE over next 6 weeks - Admit for Clinical Observation Score 7 - 10: 72.7% MACE over next 6 weeks - Early Invasive Strategies Allergies: Allergies: Allergies Coded Allergies Type Severity Reaction Last Updated Verified Sulfa (Sulfonamide Antibiotics) Allergy Intermediate 10/19/16 Yes pantoprazole Allergy Intermediate rash 10/19/16 Yes Physical Exam: PE: Constitutional: Mildly diaphoretic, appears uncomfortable. Clutching right side. HENT: Normocephalic, atraumatic, bilateral external ears normal, oropharynx moist, no oral exudates, nose normal. [] Eyes: PERRLA, EOMI, conjunctiva normal, no discharge. [] Neck: Normal range of motion, no tenderness, supple, no stridor. [] Cardiovascular:Heart rate regular rhythm, no murmur [] Lungs & Thorax: Bilateral breath sounds clear to auscultation [] Abdomen: Bowel sounds normal, soft, no tenderness, no masses, no pulsatile masses. [] Skin: Warm, dry, no erythema, no rash. [] Back: No tenderness,+ right-sided CVA tenderness. [] Extremities: No tenderness, no cyanosis, no clubbing, ROM intact, no edema. [] Neurologic: Alert and oriented X 3, normal motor function, normal sensory function, no focal deficits noted. [] Psychologic: Affect normal, judgement normal, mood normal. [] Current Patient Data: Labs: Laboratory Tests Test 09/17/21 05:20 09/17/21 05:37 Urine Collection Type Unknown Urine Color Yellow Urine Clarity Clear Urine pH 5.5 (<5.0-8.0) Urine Specific [place] 1.025 (1.000-1.030) Urine Protein Negative mg/dL (NEG-TRACE) Urine Glucose (UA) Negative mg/dL (NEG) Urine Ketones (Stick) Negative mg/dL (NEG) Urine Blood Negative (NEG) Urine Nitrite Negative (NEG) Urine Bilirubin Negative (NEG) Urine Urobilinogen Dipstick 0.2 mg/dL (0.2 mg/dL) Urine Leukocyte Esterase Negative (NEG) Urine RBC 0 /HPF (0-2) Urine WBC 0 /HPF (0-4) Urine Squamous Epithelial Cells Occ /LPF Urine Bacteria 0 /HPF (0-FEW) Urine Mucus Mod /LPF White Blood Count 8.2 x10^3/uL (4.0-11.0) Red Blood Count 4.51 x10^6/uL (4.30-5.70) Hemoglobin 13.6 g/dL (13.0-17.5) Hematocrit 39.8 % (39.0-53.0) Mean Corpuscular Volume 88 fL (79-100) Mean Corpuscular Hemoglobin 30 pg (25-35) Mean Corpuscular Hemoglobin Concent 34 g/dL (31-37) Red Cell Distribution Width 14.4 % (11.5-14.5) Platelet Count 217 x10^3/uL (140-400) Neutrophils (%) (Auto) 51 % (31-73) Lymphocytes (%) (Auto) 36 % (24-48) Monocytes (%) (Auto) 6 % (0-9) Eosinophils (%) (Auto) 7 % (0-3) H Basophils (%) (Auto) 1 % (0-3) Neutrophils # (Auto) 4.2 x10^3/uL (1.8-7.7) Lymphocytes # (Auto) 2.9 x10^3/uL (1.0-4.8) Monocytes # (Auto) 0.5 x10^3/uL (0.0-1.1) Eosinophils # (Auto) 0.6 x10^3/uL (0.0-0.7) Basophils # (Auto) 0.1 x10^3/uL (0.0-0.2) Laboratory Tests 09/17/21 05:37 Vital Signs: Vital Signs Date Time Temp Pulse Resp B/P (MAP) Pulse Ox O2 Delivery O2 Flow Rate FiO2 09/17/21 04:25 97.8 78 20 130/85 (100) 98 Room Air 97.8 EKG: EKG: [] Radiology/Procedures: Radiology/Procedures: [] Impression: [facility] [address] [place] [address] IMAGING REPORT Signed PATIENT: CELIA JERNIGAN ACCOUNT: [id number] : 1985 LOCATION: ER AGE: 36 SEX: M EXAM STATUS: PRE ER ORD. PHYSICIAN: CORBIN MCQUEEN MD REASON: right flank pain consern for kidney abscess;OMNI 300, 75ML PROCEDURE: CT ABD PELV W/ IV CONTRST ONLY PQRS Compliance Statement: One or more of the following individualized dose reduction techniques were utilized for this examination: 1. Automated exposure control 2. Adjustment of the mA and/or kV according to patient size 3. Use of iterative reconstruction technique. CT ABDOMEN+PELVIS W Clinical Indication: Reason: right flank pain consern for kidney abscess; Comparison: None. Technique: Helical CT imaging of the abdomen and pelvis is performed after 75 cc of Omnipaque 300 IV contrast. Oral contrast not administered. Findings: Lung bases are clear. Cardiac size normal. Gallbladder is contracted, limiting evaluation. The liver, spleen, pancreas, adrenal glands, and abdominal aorta are normal. Kidneys enhance symmetrically, no hydronephrosis. The stomach is unremarkable. The appendix is normal. There is no dilated small bowel. There is scattered stool throughout the colon. Stool is overall moderate. There is no colon wall thickening. No abdominal adenopathy or free fluid. The urinary bladder is normal. Prostate and seminal vesicles are normal. There is no pelvic free fluid. No acute bone abnormality. IMPRESSION: No acute abdominal or pelvic abnormality. Electronically signed by: Yash Hanna MD (09/17/2021 6:47 AM) [facility] DICTATED and SIGNED BY: YASH HANNA MD DATE: 09/17/21 [id number] 0 Course & Med Decision Making: Course & Med Decision Making Pertinent Labs and Imaging studies reviewed. (See chart for details) Patient a 36-year-old male presents with 3 days of right flank pain. On arrival is afebrile, hemodynamically stable. Does appear uncomfortable and is mildly diaphoretic on examination. DDx includes nephrolithiasis. NSAID or pyelonephritis, but no evidence of infec tion on UA. Considered AAA, but is young and only risk factors hypertension. No overlying rash to suggest zoster Given no history of nephrolithiasis, will obtain CT abdomen/pelvis for further evaluation. Given the pleuritic nature, did consider PE, however is PERC negative. No further PE work up will be pursued. 0605 CT negative. Will plan on discharge with PCP follow up. 0705 Luna Disclaimer: Luna Disclaimer: This electronic medical record was generated, in whole or in part, using a voice recognition dictation system. Departure Departure Impression: Primary Impression: Right flank pain Disposition: HOME / SELF CARE / HOMELESS Condition: STABLE Referrals: BRYAN DAVID MD (PCP) Call Dr. Agustin office today to schedule a follow up appointment. Additional Instructions: Your work up today did not show a reason for your pain. The CT scan of your abdomen, labs, urine and vital signs were all reassuring. Please schedule an appointment with Dr. David to follow up. For pain tylenol and ibuprofen are best used on a schedule. Please alternate between the two. -Tylenol 1000 mg every 6 hours (do not exceed 4000 mg in one day) -Ibuprofen 400 mg every 6 hours. Take with food. Do not take for more than 1 week. CORBIN MCQUEEN MD Sep 17, 2021 06:06
[2021-09-17] MEDS ORDERED: IOHEXOL 300 MG/ML 100ML VIAL. IV ONE (06:15)
[2021-09-17] MEDS ORDERED: CONTRAST GIVEN. MC PRN (06:15)
--- NOTE | 2021-09-17 06:50 | RAD ---
PQRS Compliance Statement: One or more of the following individualized dose reduction techniques were utilized for this examinat ion: 1. Automated exposure control 2. Adjustment of the mA and/or kV according to patient size 3. Use of iterative reconstruction technique. CT ABDOMEN+PELVIS W Clinical Indication: Reason: right flank pain consern for kidney abscess; Comparison: None. Technique: Helical CT imaging of the abdomen and pelvis is performed after 75 cc of Omnipaque 300 IV contrast. Oral contrast not administered. Findings: Lung bases are clear. Cardiac size normal. Gallbladder is contracted, limiting evaluation. The liver, spleen, pancreas, adrenal glands, and abdo niki aorta are normal. Kidneys enhance symmetrically, no hydronephrosis. The stomach is unremarkable. The appendix is normal. There is no dilated small bowel. There is scatte red stool throughout the colon. Stool is overall moderate. There is no colon wall thickening. No abdo niki adenopathy or free fluid. The urinary bladder is normal. Prostate and seminal vesicles are normal. There is no pelvic free flui d. No acute bone abnormality. IMPRESSION: No acute abdominal or pelvic abnormality. Electronically signed by: Yash Hanna MD (09/17/2021 6:47 AM) [facility]
[2021-09-17] MEDS ORDERED: CYCL10TA19 PO (07:10)
--- NOTE | 2021-09-17 07:13 | PHYS DOC ---
Past Medical History Past Medical History: Asthma Past Surgical History: No Surgical History Smoking Status: Former Smoker Alcohol Use: None Drug Use: None General Adult EDM: Chief Complaint: FLANK PAIN HPI: HPI: Patient is a 36 year old male who presents with right flank pain, he was initially seen by Dr. Banks, please see his note for further details. I assumed care, followed up on CT report results, which were found to be negative for any acute life-threatening process. The patient does indicate some pain with range of motion and movement in his right upper flank area. He is comfortable to plan for discharge home. He denies any active or severe pain at present. He is comfortable with plan for discharge home with muscle relaxers to use as needed. He has a primary care physician with him he may follow-up. He is comfortable with a prescription for Flexeril to use as needed. He declines work excuse for today. Return precautions are given. Review of Systems: Review of Systems: See Dr. Banks's note for details. Heart Score: C/O Chest Pain: No Risk Factors: Risk Factors: DM, Current or recent (<one month) smoker, HTN, HLP, family history of CAD, obesity. Risk Scores: Score 0 - 3: 2.5% MACE over next 6 weeks - Discharge Home Score 4 - 6: 20.3% MACE over next 6 weeks - Admit for Clinical Observation Score 7 - 10: 72.7% MACE over next 6 weeks - Early Invasive Strategies Current Medications: Current Medications Medications (Trade) Dose Ordered Sig/Robert Start Time Stop Time Status Last Admin Dose Admin Info (CONTRAST GIVEN -- Rx MONITORING) 1 each PRN DAILY PRN 09/17/21 06:15 09/19/21 06:14 Iohexol (Omnipaque 300 Mg/ml) 75 ml 1X ONCE 09/17/21 06:15 09/17/21 06:16 DC 09/17/21 06:35 75 ML Allergies: Allergies: Allergies Coded Allergies Type Severity Reaction Last Updated Verified Sulfa (Sulfonamide Antibiotics) Allergy Intermediate 10/19/16 Yes pantoprazole Allergy Intermediate rash 10/19/16 Yes Physical Exam: PE: See Dr. Banks's note for further details.\ He is resting comfortably, nontoxic, not acutely ill-appearing. Vital signs are stable. Respirations are nonlabored. Palpation the right lateral upper flank and thorax reproduce pain, no rash noted. No crepitus or step-offs. Abdomen is soft, nondistended, nontender to palpation. Current Patient Data: Labs: Laboratory Tests Test 09/17/21 05:20 09/17/21 05:37 Urine Collection Type Unknown Urine Color Yellow Urine Clarity Clear Urine pH 5.5 (<5.0-8.0) Urine Specific [place] 1.025 (1.000-1.030) Urine Protein Negative mg/dL (NEG-TRACE) Urine Glucose (UA) Negative mg/dL (NEG) Urine Ketones (Stick) Negative mg/dL (NEG) Urine Blood Negative (NEG) Urine Nitrite Negative (NEG) Urine Bilirubin Negative (NEG) Urine Urobilinogen Dipstick 0.2 mg/dL (0.2 mg/dL) Urine Leukocyte Esterase Negative (NEG) Urine RBC 0 /HPF (0-2) Urine WBC 0 /HPF (0-4) Urine Squamous Epithelial Cells Occ /LPF Urine Bacteria 0 /HPF (0-FEW) Urine Mucus Mod /LPF White Blood Count 8.2 x10^3/uL (4.0-11.0) Red Blood Count 4.51 x10^6/uL (4.30-5.70) Hemoglobin 13.6 g/dL (13.0-17.5) Hematocrit 39.8 % (39.0-53.0) Mean Corpuscular Volume 88 fL (79-100) Mean Corpuscular Hemoglobin 30 pg (25-35) Mean Corpuscular Hemoglobin Concent 34 g/dL (31-37) Red Cell Distribution Width 14.4 % (11.5-14.5) Platelet Count 217 x10^3/uL (140-400) Neutrophils (%) (Auto) 51 % (31-73) Lymphocytes (%) (Auto) 36 % (24-48) Monocytes (%) (Auto) 6 % (0-9) Eosinophils (%) (Auto) 7 % (0-3) H Basophils (%) (Auto) 1 % (0-3) Neutrophils # (Auto) 4.2 x10^3/uL (1.8-7.7) Lymphocytes # (Auto) 2.9 x10^3/uL (1.0-4.8) Monocytes # (Auto) 0.5 x10^3/uL (0.0-1.1) Eosinophils # (Auto) 0.6 x10^3/uL (0.0-0.7) Basophils # (Auto) 0.1 x10^3/uL (0.0-0.2) Sodium Level 139 mmol/L (136-145) Potassium Level 3.5 mmol/L (3.5-5.1) Chloride Level 104 mmol/L (98-107) Carbon Dioxide Level 28 mmol/L (21-32) Anion Gap 7 (6-14) Blood Urea Nitrogen 11 mg/dL (8-26) Creatinine 1.1 mg/dL (0.7-1.3) Estimated GFR (Cockcroft-Gault) 75.3 BUN/Creatinine Ratio 10 (6-20) Glucose Level 125 mg/dL (70-99) H Calcium Level 8.9 mg/dL (8.5-10.1) Total Bilirubin 0.3 mg/dL (0.2-1.0) Aspartate Amino Transferase (AST) 25 U/L (15-37) Alanine Aminotransferase (ALT) 79 U/L (16-63) H Alkaline Phosphatase 67 U/L (46-116) Total Protein 7.6 g/dL (6.4-8.2) Albumin 4.2 g/dL (3.4-5.0) Albumin/Globulin Ratio 1.2 (1.0-1.7) Laboratory Tests 09/17/21 05:37 Laboratory Tests 09/17/21 05:37 Vital Signs: Vital Signs Date Time Temp Pulse Resp B/P (MAP) Pulse Ox O2 Delivery O2 Flow Rate FiO2 09/17/21 04:25 97.8 78 20 130/85 (100) 98 Room Air 97.8 EKG: EKG: [] Radiology/Procedures: Radiology/Procedures: [] Course & Med Decision Making: Course & Med Decision Making Pertinent Labs and Imaging studies reviewed. (See chart for details) See Dr. Banks's note in my above note for further details. The patient is comfortable plan for discharge. He declines further pain medication here at this time, denies any active or severe pain currently. Prescription for Flexeril sent to his preferred pharmacy at [facility] at [address] [place] [address]. Luna Disclaimer: Luna Disclaimer: This electronic medical record was generated, in whole or in part, using a voice recognition dictation system. Departure Departure Impression: Primary Impression: Right flank pain Disposition: HOME / SELF CARE / HOMELESS Condition: STABLE Referrals: BRYAN DAVID MD (PCP) Call Dr. Agustin office today to schedule a follow up appointment. Additional Instructions: Your work up today did not show a reason for your pain. The CT scan of your abdomen, labs, urine and vital signs were all reassuring. Please schedule an appointment with Dr. David to follow up. For pain tylenol and ibuprofen are best used on a schedule. Please alternate between the two. -Tylenol 1000 mg every 6 hours (do not exceed 4000 mg in one day) -Ibuprofen 400 mg every 6 hours. Take with food. Do not take for more than 1 week. Scripts Cyclobenzaprine Hcl (CYCLOBENZAPRINE HCL) 10 Mg Tablet 1 TAB PO BID for muscle spasm, #14 TAB Prov: SAMAN WALDEN DO 09/17/21 SAMAN WALDEN DO Sep 17, 2021 07:13
[2021-09-17 07:28] VITALS: BP 150/90
== END 2021-09-17 07:31 | disposition home or self-care (01) ==
LOC: ER 04:07
DX: R10.9 Unspecified abdominal pain (principal); J45.909 Unspecified asthma, uncomplicated; Z88.2 Allergy status to sulfonamides; Z88.8 Allergy status to other drugs, medicaments and biological substances
CPT/HCPCS: 36415; 74177; 80053; 81001; 85025; 99285; Q9967